=== PATIENT | male | born 1995 | race Caucasian/White ===

== ENCOUNTER 2024-04-09 16:28 | Emergency (ER) | payer SELFPAY ==
[~2024-04-09] VITALS: Ht 165.1 cm; Wt 78.6 kg
[2024-04-09 18:26] VITALS: BP 146/89; PULSE 72; RESP 15; TEMP 98.5; O2SAT 100
[2024-04-09] MEDS ORDERED: IBUP-1456 PO (19:30)
== END 2024-04-09 19:43 | disposition home or self-care (01) ==
LOC: ER 16:28
DX: S20.20XA Contusion of thorax, unspecified, initial encounter (principal); Z79.1 Long term (current) use of non-steroidal anti-inflammatories (NSAID); V89.2XXA Person injured in unspecified motor-vehicle accident, traffic, initial encounter; Y93.89 Activity, other specified; Y92.89 Other specified places as the place of occurrence of the external cause; Y99.8 Other external cause status